=== PATIENT | male | born 1955 | race Caucasian/White ===

== ENCOUNTER → 2016-08-25 | Outpatient (CLI) | payer OTHER | END | disposition home or self-care (01) | LOC: MW.CHFP 08:32 | PROVIDERS: ATTEND Student in an Organized Health Care Education/Training Program | DX: I10 Essential (primary) hypertension (principal); E78.1 Pure hyperglyceridemia; E78.00 Pure hypercholesterolemia, unspecified; E11.69 Type 2 diabetes mellitus with other specified complication; E78.5 Hyperlipidemia, unspecified; E03.9 Hypothyroidism, unspecified | CPT/HCPCS: 36415; 80053; 80061; 82044; 83036; 84443 ==

== ENCOUNTER → 2016-08-31 | Outpatient (CLI) | payer OTHER | LOC: MW.CHFP 13:34 | PROVIDERS: ATTEND Internal Medicine | DX: I50.9 Heart failure, unspecified (principal) | CPT/HCPCS: 93005 ==

== ENCOUNTER → 2016-09-13 | Outpatient (CLI) | payer OTHER ==
--- NOTE | 2016-09-13 07:39 | PCM.PRNOTE ---
- Free Text/Narrative Note: Exercise MIBI Indication CP Patient was brought to the stress test lab in postabsorptive state verbal and paper consent was obtained from patient Vital signs at resting state blood pressure of 120/80 with a heart rate of 68 EKG shows sinus rhythm no ST changes no Q waves Maximal heart rate of 146 and target heart rate is 136 Patient were unable to reach the target heart rate, stage III Chema protocol Peak blood pressure is 144/84 Total exercise time of 8.[address] changes with a peak heart rate no arrhythmia METS 10.1 Patient expressed symptoms of out of breath Impression Normal hemodynamics, normal chronotropic, good exercise capacity, negative ECG criteria for ischemia Plan Nuclear portion pending
--- NOTE | 2016-09-13 11:51 | NM ---
EXAMINATION: Nuclear medicine myocardial perfusion study with exercise stress test. HISTORY: Heart failure. PROCEDURE: Patient exercised according to Chema protocol for 8 minutes and 20 seconds and achieved maximal hear t rate of 146 beats per minute. Adequate exercise. Following intravenous administration of 26.7 mCi of technetium 99m sestamibi, stress SPECT images including gating imaging was performed. FINDINGS: Stress myocardial SPECT images demonstrates minimally decreased perfusion along the inferior wall, v iewing source images this is most consistent with diaphragmatic attenuation. Review of gated images demonstrates normal wall motion, contractility and wall thickening. The left ventricular ejection fraction is 54 %. The left ventricular chamber size is normal. IMPRESSION: 1. No evidence of myocardial ischemia. 2. Normal ventricular chamber size and function with ejection fraction of 54 %.
== END | disposition home or self-care (01) ==
LOC: MW.NM 06:32
PROVIDERS: ATTEND Internal Medicine
DX: I50.9 Heart failure, unspecified (principal)
CPT/HCPCS: 78451; 93017; A9500

== ENCOUNTER → 2016-09-24 | Outpatient (CLI) | payer OTHER ==
--- NOTE | 2016-09-28 16:19 | NM ---
EXAM DATE: 09/24/16 PATIENT'S AGE: 61 ADDENDUM: Additional images were obtained at rest following the administration of 27.3 mCi of technetium 99m labeled sestamibi. FINDINGS/IMPRESSION: The perfusion pattern at rest is similar to the stress without evidence of myocardial ischemia. Ejection fraction at rest is 47%. Wall motion is also similar. The TID is less than 1. EXAMINATION: Nuclear medicine myocardial perfusion study with exercise stress test. HISTORY: Heart failure. PROCEDURE: Patient exercised according to Chema protocol for 8 minutes and 20 seconds and achieved maximal heart rate of 146 beats per minute. Adequate exercise. Following intravenous administration of 26.7 mCi of technetium 99m sestamibi, stress SPECT images including gating imaging was performed. FINDINGS: Stress myocardial SPECT images demonstrates minimally decreased perfusion along the inferior wall, viewing source images this is most consistent with diaphragmatic attenuation. Review of gated images demonstrates normal wall motion, contractility and wall thickening. The left ventricular ejection fraction is 54 %. The left ventricular chamber size is normal. IMPRESSION: 1. No evidence of myocardial ischemia. 2. Normal ventricular chamber size and function with ejection fraction of 54 %. MTDD
== END ==
LOC: MW.NM 08:57
PROVIDERS: ATTEND Internal Medicine
DX: I50.9 Heart failure, unspecified (principal)
CPT/HCPCS: 78451; A9500

== ENCOUNTER 2020-04-30 21:55 | Observation (INO) | payer OTHER ==
[2020-04-30] MEDS ORDERED: Sodium Chloride 0.9% 2.5 ML Syringe FLUSH PRN (22:32)
[2020-04-30] MEDS ORDERED: Sodium Chloride 0.9% 10 ML Syringe FLUSH PRN (22:32)
[2020-04-30 23:04] LABS: BLOOD UREA NITROGEN,BUN 15 mg/dL (7.0-18.0); CARBON DIOXIDE,CO2 28.9 mmol/L (21.0-32.0); CHLORIDE,CL 104 mmol/L (98-107); GLUCOSE RANDOM 150 mg/dL (74-106); POTASSIUM,K 4.1 mmol/L (3.5-5.1); SODIUM,NA 142 mmol/L (136-148)
--- NOTE | 2020-04-30 23:17 | CR ---
INDICATION: Shortness of breath TECHNIQUE: Chest 2 views. COMPARISON: None FINDINGS: Cardiomegaly. Status post median sternotomy. Very mild pulmonary cephalization. No focal infiltrate or edema. No pneumothorax or effusion. No acute osseous abnormality. IMPRESSION: Very mild pulmonary cephalization. Cardiomegaly. Dictated by Herminia Malcolm MD @ Apr 30 2020 11:15PM Signed by Dr. Herminia Malcolm @ Apr 30 2020 11:17PM
--- NOTE | 2020-04-30 23:28 | EDM.PDOC ---
ED HPI GENERAL MEDICAL PROBLEM - General Chief Complaint: ENT Problem Stated Complaint: CHEST PAIN Time Seen by Provider: 04/30/20 22:07 - History of Present Illness INITIAL COMMENTS - FREE TEXT/NARRATIVE: 64-year-old male with a history of nonischemic cardiomyopathy, myasthenia gravis, autoimmune disease, CHF who is presenting with 2 complaints. The first is a gradually worsening abdominal discomfort and pressure now associated with a generalized chest pressure and heaviness and shortness of breath that worsens with exertion and worsens when he lays flat this process is been gradually worsening for the last several days. No cough no fever no sore throat. Is associated with diffuse arthralgias. Patient reports compliance with his diuretic and other medications. Patient also notes that since yesterday he has had worsening pain and swelling of the right upper incisor he has a history of poor dentition he has a known mandibular abscess in the past that was found over a year ago but he is not yet been able to afford to have this operated on. No pain with swallowing no difficulty swallowing no difficulty breathing. His abdominal discomfort does not change with eating he denies fever. chest Pain Score (Numeric/FACES): 5 - Related Data Allergies Allergy/AdvReac Type Severity Reaction Status Date / Time venom-honey bee Allergy Swelling Verified 04/30/20 22:09 [bee venom (honey bee)] Home Meds: Home Meds Furosemide [Lasix] 20 mg PO DAILY 10/09/13 [History] Gabapentin [Neurontin] 2 tab PO BID 10/09/13 [History] Lisinopril 20 mg PO DAILY 10/09/13 [History] Pantoprazole [ProTONIX] 40 mg PO BEDTIME 10/09/13 [History] Pyridostigmine [Mestinon] 1 tab PO BID 10/09/13 [History] Sertraline [Zoloft] 100 mg PO BID 10/09/13 [History] busPIRone HCl [busPIRone] 15 mg PO BID 10/09/13 [History] carvediloL [Carvedilol] 1 tab PO BID 10/09/13 [History] levETIRAcetam [Levetiracetam] 1,000 mg PO BID 10/09/13 [History] EPINEPHrine [Epipen JR] 1 dose SUBCUT ASDIRECTED PRN 01/08/16 [History] Insulin Glarg,Human.Rec.Analog [LantUS Solostar] 10 unit SUBCUT QAM 01/08/16 [History] Levothyroxine 1 tab PO QAM 01/08/16 [History] Liraglutide [Victoza] 1 dose SUBCUT QAM 01/08/16 [History] Multivitamin [Daily Multiple Vitamin] 1 tab PO DAILY 01/08/16 [History] Naproxen Sodium [Aleve] 1 tab PO ASDIRECTED PRN 01/08/16 [History] SUMAtriptan [Sumatriptan] 1 spray NASBOTH ASDIRECTED PRN MDD 40 mg 01/08/16 [History] Empagliflozin [Jardiance] 1 tab PO DAILY 04/30/20 [History] Rosuvastatin Calcium 20 mg PO DAILY 04/30/20 [History] metFORMIN HCl [Metformin HCl] 500 mg PO DAILY 04/30/20 [History] Past Medical History HEENT History: Reports: Allergic Rhinitis, Impaired Vision Other HEENT History: wears glasses Cardiovascular History: Reports: Cardiomyopathy, Heart Failure, Heart Murmur, High Cholesterol, Hypertension Other Cardiovascular History: valve prolapse, polygladular autoimmune syndrome Respiratory History: Reports: Asthma, Bronchitis, Recurrent, Sleep Apnea Other Respiratory History: pleurisy Gastrointestinal History: Reports: Colon Polyp, GERD, Hiatal Hernia Genitourinary History: Reports: None Musculoskeletal History: Reports: Arthritis, Back Pain, Chronic, Fracture Other Musculoskeletal History: Broke left radius and ulna in 2002 Neurological History: Reports: Migraines, Seizure, Vertigo, Other (See Below) Other Neuro History: epilepsy Psychiatric History: Reports: Anxiety, Depression, OCD Endocrine/Metabolic History: Reports: Diabetes, Type II, Hypothyroidism, Obesity/BMI 30+ Other Endocrine/Metabolic History: myasthenia gravis Hematologic History: Reports: Blood Transfusion(s) Immunologic History: Reports: None Oncologic (Cancer) History: Reports: Other (See Below) Other Oncologic History: skin cancer on left leg, unknown type Dermatologic History: Reports: Other (See Below) Other Dermatologic History: skin cancer on leg removed 1979 - Infectious Disease History Infectious Disease History: Reports: C-Difficile, Chicken Pox, Measles, Mumps, Pertussis (Whooping Cough), Scarlet Fever - Past Surgical History Head Surgeries/Procedures: Reports: None HEENT Surgical History: Reports: Adenoidectomy Other HEENT Surgeries/Procedures: sinus infections, detached retina 1973 Cardiovascular Surgical History: Reports: Other (See Below) Other Cardiovascular Surgeries/Procedures: several angiograms Respiratory Surgical History: Reports: None GI Surgical History: Reports: Colonoscopy Other GI Surgeries/Procedures: precancerous lesions removed during colonoscopy 2006 Male Surgical History: Reports: Vasectomy Other Male Surgeries/Procedures: prostatitis age 18 Endocrine Surgical History: Reports: Other (See Below) Other Endocrine Surgeries/Procedures: thyroidectomy 1973 Neurological Surgical History: Reports: None Musculoskeletal Surgical History: Reports: None Oncologic Surgical History: Reports: None Dermatological Surgical History: Reports: None Social & Family History - Tobacco Use Tobacco Use Status *Q: Never Tobacco User - Caffeine Use Caffeine Use: Reports: None - Recreational Drug Use Recreational Drug Use: No ED ROS GENERAL - Review of Systems Review Of Systems: See Below Free Text/Narrative/Comment: General: No fever. Skin: No rash. Eyes: No vision problems. ENT: Per HPI Neck: No neck stiffness. Respiratory: Per HPI Cardiac: Per HPI Gastrointestinal: Per HPI Urinary: No dysuria. Musculoskeletal: No myalgias/arthralgias. Neurologic: No headache. ED EXAM, GENERAL - Physical Exam Exam: See Below Free Text/Narrative:: General Appearance: No acute distress, appears comfortable Skin: No rash HEENT: Normocephalic/atraumatic, sclera anicteric, mucous membranes moist, poor dentition generally, missing right upper canine with signs of early associated gingival abscess, no trismus no submental or sublingual swelling no other facial swelling Neck: Normal range of motion Chest and Lungs: Normal work of breathing, crackles at the bilateral bases Cardiovascular: Regular rate and rhythm, no lower extremity edema Abdomen: Soft, non-tender, mild distention Back: Normal Musculoskeletal: No edema or tenderness Neurologic: Awake, alert, no obvious deficits, moving all extremities Psychiatric: Appropriate, cooperative #1 Interpretation EKG Date: 04/30/20 Time: 22:05 EKG Interpretation Comments: Normal sinus rhythm rate of 55 normal intervals and axis no acute ischemia QTC 400 Course - Vital Signs Last Recorded V/S: Last Vital Signs Temp 95.4 F L 04/30/20 21:57 Pulse 55 L 05/01/20 00:36 Resp 20 05/01/20 00:36 BP 111/83 05/01/20 00:36 Pulse Ox 94 L 05/01/20 00:36 - Orders/Labs/Meds Orders: Active Orders 24 hr Category Date Time Status Patient Status [ADT] Routine ADT 05/01/20 00:12 Active EKG 12 Lead [EKG Documentation Completion] [RC] STAT Care 04/30/20 23:47 Active CORONAVIRUS COVID-19 BESSIE [MOLEC] Stat Lab 05/01/20 00:15 Received CORONAVIRUS COVID-19 PCR PHL Stat Lab 05/01/20 00:35 Ordered URINALYSIS W/MICROSCOPIC [UA W/MICROSCOPIC] [URIN] Stat Lab 04/30/20 23:11 Results Sodium Chloride 0.9% [Saline Flush] Med 04/30/20 22:32 Active 10 ml FLUSH ASDIRECTED PRN Sodium Chloride 0.9% [Saline Flush] Med 04/30/20 22:32 Active 2.5 ml FLUSH ASDIRECTED PRN Saline Lock Insert [OM.PC] Stat Oth 04/30/20 22:33 Ordered Medication Orders Sodium Chloride (Saline Flush) 10 ml FLUSH ASDIRECTED PRN PRN Reason: Keep Vein Open Sodium Chloride (Saline Flush) 2.5 ml FLUSH ASDIRECTED PRN PRN Reason: Keep Vein Open Labs: Laboratory Tests 04/30/20 04/30/20 04/30/20 Range/Units 22:12 22:25 22:25 WBC 9.14 (4.0-11.0) K/uL RBC 5.13 (4.50-5.90) M/uL Hgb 14.5 (13.0-17.0) g/dL Hct 45.9 (38.0-50.0) % MCV 89.5 (80.0-98.0) fL MCH 28.3 (27.0-32.0) pg MCHC 31.6 (31.0-37.0) g/dL RDW Std Deviation 47.0 (28.0-62.0) fl RDW Coeff of Ifeanyi 14 (11.0-15.0) % Plt Count 226 (150-400) K/uL MPV 9.90 (7.40-12.00) fL Neut % (Auto) 51.8 (48.0-80.0) % Lymph % (Auto) 34.4 (16.0-40.0) % [place] % (Auto) 9.8 (0.0-15.0) % Eos % (Auto) 3.5 (0.0-7.0) % Baso % (Auto) 0.5 (0.0-1.5) % Neut # (Auto) 4.7 (1.4-5.7) K/uL Lymph # (Auto) 3.1 H (0.6-2.4) K/uL [place] # (Auto) 0.9 H (0.0-0.8) K/uL Eos # (Auto) 0.3 (0.0-0.7) K/uL Baso # (Auto) 0.1 (0.0-0.1) K/uL Nucleated RBC % 0.0 /100WBC Nucleated RBCs # 0 K/uL Sodium 142 (136-148) mmol/L Potassium 4.1 (3.5-5.1) mmol/L Chloride 104 (98-107) mmol/L Carbon Dioxide 28.9 (21.0-32.0) mmol/L BUN 15 (7.0-18.0) mg/dL Creatinine 1.4 H (0.8-1.3) mg/dL Est Cr Clr Drug Dosing 62.79 mL/min Estimated GFR (MDRD) 51.2 ml/min Glucose 150 H (74-106) mg/dL POC Glucose 142 H (60-110) mg/dL Calcium 8.8 (8.5-10.1) mg/dL Total Bilirubin 0.8 (0.2-1.0) mg/dL AST 18 (15-37) IU/L ALT 37 (14-63) IU/L Alkaline Phosphatase 89 (46-116) U/L Troponin I < 0.050 (0.000-0.056) ng/mL B-Natriuretic Peptide (<100) PG/ML Total Protein 7.0 (6.4-8.2) g/dL Albumin 3.8 (3.4-5.0) g/dL Globulin 3.2 (2.6-4.0) g/dL Albumin/Globulin Ratio 1.2 (0.9-1.6) Urine Color Urine Appearance Urine pH (5.0-8.0) Ur Specific [place] (1.001-1.035) Urine Protein (NEGATIVE) mg/dL Urine Glucose (UA) (NEGATIVE) mg/dL Urine Ketones (NEGATIVE) mg/dL Urine Occult Blood (NEGATIVE) Urine Nitrite (NEGATIVE) Urine Bilirubin (NEGATIVE) Urine Urobilinogen (<2.0) EU/dL Ur Leukocyte Esterase (NEGATIVE) 04/30/20 04/30/20 Range/Units 22:25 23:11 WBC (4.0-11.0) K/uL RBC (4.50-5.90) M/uL Hgb (13.0-17.0) g/dL Hct (38.0-50.0) % MCV (80.0-98.0) fL MCH (27.0-32.0) pg MCHC (31.0-37.0) g/dL RDW Std Deviation (28.0-62.0) fl RDW Coeff of Ifeanyi (11.0-15.0) % Plt Count (150-400) K/uL MPV (7.40-12.00) fL Neut % (Auto) (48.0-80.0) % Lymph % (Auto) (16.0-40.0) % [place] % (Auto) (0.0-15.0) % Eos % (Auto) (0.0-7.0) % Baso % (Auto) (0.0-1.5) % Neut # (Auto) (1.4-5.7) K/uL Lymph # (Auto) (0.6-2.4) K/uL [place] # (Auto) (0.0-0.8) K/uL Eos # (Auto) (0.0-0.7) K/uL Baso # (Auto) (0.0-0.1) K/uL Nucleated RBC % /100WBC Nucleated RBCs # K/uL Sodium (136-148) mmol/L Potassium (3.5-5.1) mmol/L Chloride (98-107) mmol/L Carbon Dioxide (21.0-32.0) mmol/L BUN (7.0-18.0) mg/dL Creatinine (0.8-1.3) mg/dL Est Cr Clr Drug Dosing mL/min Estimated GFR (MDRD) ml/min Glucose (74-106) mg/dL POC Glucose (60-110) mg/dL Calcium (8.5-10.1) mg/dL Total Bilirubin (0.2-1.0) mg/dL AST (15-37) IU/L ALT (14-63) IU/L Alkaline Phosphatase (46-116) U/L Troponin I (0.000-0.056) ng/mL B-Natriuretic Peptide < 2 (<100) PG/ML Total Protein (6.4-8.2) g/dL Albumin (3.4-5.0) g/dL Globulin (2.6-4.0) g/dL Albumin/Globulin Ratio (0.9-1.6) Urine Color YELLOW Urine Appearance CLEAR Urine pH 6.0 (5.0-8.0) Ur Specific [place] 1.020 (1.001-1.035) Urine Protein NEGATIVE (NEGATIVE) mg/dL Urine Glucose (UA) 500 H (NEGATIVE) mg/dL Urine Ketones TRACE H (NEGATIVE) mg/dL Urine Occult Blood NEGATIVE (NEGATIVE) Urine Nitrite NEGATIVE (NEGATIVE) Urine Bilirubin NEGATIVE (NEGATIVE) Urine Urobilinogen 0.2 (<2.0) EU/dL Ur Leukocyte Esterase NEGATIVE (NEGATIVE) Meds: Medications Generic Name Dose Route Start Last Admin Trade Name Freq PRN Reason Stop Dose Admin Sodium Chloride 10 ml 04/30/20 22:32 Saline Flush FLUSH ASDIRECTED PRN Keep Vein Open Sodium Chloride 2.5 ml 04/30/20 22:32 Saline Flush FLUSH ASDIRECTED PRN Keep Vein Open Discontinued Medications Generic Name Dose Route Start Last Admin Trade Name Freq PRN Reason Stop Dose Admin Furosemide 40 mg 05/01/20 00:02 05/01/20 00:20 Lasix IVPUSH 05/01/20 00:03 40 mg NOW ONE Administration Morphine Sulfate 4 mg 05/01/20 00:02 05/01/20 00:24 Morphine IVPUSH 05/01/20 00:03 4 mg ONETIME ONE Administration Departure - Departure Time of Disposition: 00:15 Disposition: Refer to Observation Condition: Good Clinical Impression: Chest pain - Discharge Information *PRESCRIPTION DRUG MONITORING PROGRAM REVIEWED*: Not Applicable *COPY OF PRESCRIPTION DRUG MONITORING REPORT IN PATIENT ABY: Not Applicable Referrals: PCP,None [Primary Care Provider] - Forms: ED Department Discharge Sepsis Event Note (ED) - Evaluation Sepsis Screening Result: No Definite Risk - Focused Exam Vital Signs: Vital Signs Temp Pulse Resp BP Pulse Ox 05/01/20 00:36 55 L 20 111/83 94 L 04/30/20 21:57 95.4 F L 58 L 18 134/74 95 - My Orders Last 24 Hours: My Active Orders 04/30/20 22:32 Sodium Chloride 0.9% [Saline Flush] 10 ml FLUSH ASDIRECTED PRN Sodium Chloride 0.9% [Saline Flush] 2.5 ml FLUSH ASDIRECTED PRN 04/30/20 22:33 Saline Lock Insert [OM.PC] Stat 04/30/20 23:11 URINALYSIS W/MICROSCOPIC [UA W/MICROSCOPIC] [URIN] Stat 04/30/20 23:47 EKG 12 Lead [EKG Documentation Completion] [RC] STAT 05/01/20 00:12 Patient Status [ADT] Routine 05/01/20 00:15 CORONAVIRUS COVID-19 BESSIE [MOLEC] Stat 05/01/20 00:35 CORONAVIRUS COVID-19 PCR PHL Stat - Assessment/Plan Last 24 Hours: My Active Orders 04/30/20 22:32 Sodium Chloride 0.9% [Saline Flush] 10 ml FLUSH ASDIRECTED PRN Sodium Chloride 0.9% [Saline Flush] 2.5 ml FLUSH ASDIRECTED PRN 04/30/20 22:33 Saline Lock Insert [OM.PC] Stat 04/30/20 23:11 URINALYSIS W/MICROSCOPIC [UA W/MICROSCOPIC] [URIN] Stat 04/30/20 23:47 EKG 12 Lead [EKG Documentation Completion] [RC] STAT 05/01/20 00:12 Patient Status [ADT] Routine 05/01/20 00:15 CORONAVIRUS COVID-19 BESSIE [MOLEC] Stat 05/01/20 00:35 CORONAVIRUS COVID-19 PCR PHL Stat Assessment:: 64-year-old male presenting with signs and symptoms that are most consistent with fluid retention and CHF. Superior vena cava syndrome considered as well but felt less likely given the associated abdominal symptoms. Would not pursue further unless chest x-ray demonstrates mediastinal abnormality. No cough or fever that would suggest pneumonia or Covid. EKG is without acute ischemia. Labs including CBC CMP BNP troponin pending at this time. Chest x-ray pending as well. Regarding the dental abscess patient requires antibiotics but does not have an indication for emergent draining at this point. Patient to follow-up with a dentist as an outpatient regarding this. No sign of deep space head or neck infection. ACS considered I think that is unlikely given the lack of prior history of CAD. However troponin pending. 0005: Patient's initial troponin is normal his blood work in general is relatively unremarkable his chest x-ray does show some very mild congestion. Patient continues to report some mild chest heaviness he will be given a dose of morphine. Though he has no past history of CAD given his age his known cardiomyopathy with signs of mild fluid overload the ongoing chest pain I think admission for serial enzymes and diuresis is reasonable we will discuss with the hospitalist. Pt discussed with the hospitalist and will refer to obs tele for further care and evaluation.
[2020-05-01] MEDS ORDERED: Furosemide 40 MG/4 ML VIAL IVPUSH ONE (00:02)
[2020-05-01] MEDS ORDERED: Morphine 4 MG/ML Syringe IVPUSH ONE (00:02)
[2020-05-01] MEDS ORDERED: Morphine 2 MG/ML SYRINGE IVPUSH PRN (02:09)
[2020-05-01 06:41] LABS: POTASSIUM,K 3.6 mmol/L (3.5-5.1)
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
[2020-05-01] MEDS: Furosemide 40 MG/4 ML VIAL IVPUSH SCH ×2 (09:53→15:00)
[2020-05-01] MEDS: Aspirin 81 MG Tab.EC PO SCH (09:54)
[2020-05-01] MEDS ORDERED: Glucagon,Human Recombinant 1 MG Vial IM PRN (10:33)
[2020-05-01] MEDS ORDERED: 50% Dextrose in Water 50 ML Syringe IV PRN (10:33)
[2020-05-01] MEDS ORDERED: Gabapentin 800 MG Tab PO SCH (10:45)
[2020-05-01] MEDS ORDERED: levETIRAcetam 500 MG Tab PO SCH (10:45)
[2020-05-01] MEDS ORDERED: Rosuvastatin 10 MG Tab PO SCH (10:45)
[2020-05-01] MEDS ORDERED: busPIRone 5 MG Tab PO SCH (10:45)
[2020-05-01] MEDS ORDERED: Sertraline 100 MG Tab PO SCH (10:45)
[2020-05-01 10:55] LABS: HEMOGLOBIN A1C 6.6 %
[2020-05-01] MEDS: Nitroglycerin 0.4 MG Tab.SL SL PRN ×2 (10:55→11:13)
[2020-05-01] MEDS ORDERED: Lactated Ringers 500 ML IV ONE ×2 (11:08→11:55)
[2020-05-01] MEDS ORDERED: Iopamidol 755 MG/ML 500 ML Multipack Bottle IVPUSH STA (11:53)
[2020-05-01] MEDS: Insulin Aspart 100 Units/ML 3 ML Pen SUBCUT SCH ×2 (12:36→19:33)
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
[2020-05-01] MEDS: busPIRone 5 MG Tab PO SCH ×2 (14:57→21:05)
[2020-05-01] MEDS: Rosuvastatin 10 MG Tab PO SCH (14:58)
[2020-05-01] MEDS: levETIRAcetam 500 MG Tab PO SCH ×2 (14:59→21:05)
[2020-05-01] MEDS: Sertraline 100 MG Tab PO SCH ×2 (14:59→21:06)
[2020-05-01] MEDS: Gabapentin 800 MG Tab PO SCH ×2 (14:59→21:06)
[2020-05-01] MEDS ORDERED: Pantoprazole 40 MG Tab.CR PO SCH (21:00)
[2020-05-02 05:14] LABS: CARBON DIOXIDE,CO2 33.2 mmol/L (21.0-32.0); POTASSIUM,K 3.9 mmol/L (3.5-5.1)
[2020-05-02] MEDS: Insulin Aspart 100 Units/ML 3 ML Pen SUBCUT SCH ×2 (06:34→12:04)
[2020-05-02 08:24] LABS: HEMOGLOBIN A1C 6.6 %
[2020-05-02] MEDS: Furosemide 40 MG/4 ML VIAL IVPUSH SCH ×2 (08:51→14:38)
[2020-05-02] MEDS: Sertraline 100 MG Tab PO SCH (08:52)
[2020-05-02] MEDS: Gabapentin 800 MG Tab PO SCH (08:52)
[2020-05-02] MEDS: Rosuvastatin 10 MG Tab PO SCH (08:52)
[2020-05-02] MEDS: Aspirin 81 MG Tab.EC PO SCH (08:52)
[2020-05-02] MEDS: levETIRAcetam 500 MG Tab PO SCH (08:53)
[2020-05-02] MEDS: busPIRone 5 MG Tab PO SCH (08:53)
[2020-05-02] MEDS ORDERED: Levothyroxine 125 MCG Tab PO SCH (09:00)
[2020-05-02] MEDS ORDERED: Insulin Glargine,Human Rec. Analog 100 Units/ML 3 ML Pen SUBCUT SCH (09:00)
[2020-05-02 11:27] VITALS: BP 122/78; PULSE 64
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
--- NOTE | 2020-05-06 10:07 | ECHO ---
EXAM DATE: 05/01/20 PATIENT'S AGE: 64 The ECHO report has been scanned into [employer] and can be seen in this patient's EMR (Electronic Medical Record) under the REPORTS section. The report has also been scanned into PACS. LIVE
== END 2020-05-02 15:20 | disposition home or self-care (01) ==
LOC: MW.ED 21:55 → MW.MS 05-01 00:12
PROVIDERS: ADMIT Student in an Organized Health Care Education/Training Program; ATTEND Student in an Organized Health Care Education/Training Program
DX: R07.89 Other chest pain (principal); I50.9 Heart failure, unspecified; I42.8 Other cardiomyopathies; E11.9 Type 2 diabetes mellitus without complications; G70.00 Myasthenia gravis without (acute) exacerbation; K21.9 Gastro-esophageal reflux disease without esophagitis; E78.00 Pure hypercholesterolemia, unspecified; E03.9 Hypothyroidism, unspecified; E66.9 Obesity, unspecified; F32.9 Major depressive disorder, single episode, unspecified; F41.9 Anxiety disorder, unspecified; Z91.030 Bee allergy status; Z79.899 Other long term (current) drug therapy; Z79.890 Hormone replacement therapy; Z79.4 Long term (current) use of insulin; Z20.828 Contact with and (suspected) exposure to other viral communicable diseases; Z68.33 Body mass index [BMI] 33.0-33.9, adult
CPT/HCPCS: 36415; 71046; 71275; 74174; 80048; 80053; 80061; 81001; 82962; 83036; 83735; 83880; 84100; 84443; 84484; 85025; 87635; 93005; 93306; 96374; 96375; 96376; 99285; A9270; G0378; J1815; J1940; J2270; J7120; Q9967; 93010; 99217; 99218; 99283; U0002